=== PATIENT | female | born 1990 | race Caucasian/White ===

== ENCOUNTER 2019-03-10 12:19 | Outpatient (CLI) | payer OTHER ==
[~2019-03-10] VITALS: Ht 154.9 cm; Wt 97.6 kg
[2019-03-10 12:29] VITALS: BP 119/62; PULSE 84; RESP 18; Ht 154.9 cm; Wt 97.6 kg
--- NOTE | 2019-03-10 14:25 | TRIAGE ---
OB Triage Datetime Report Generated by CPN: 03/10/2019 14:25 Datetime: 03/10/2019 13:27 Comments: removed per order due to gestational age Datetime: 03/10/2019 13:10 Stage of : OB Triage Datetime: 03/10/2019 12:38 Vaginal Exam Dilatation (cms): 1.5 Effacement (%): 50 Station: -3 Exam By: S CLIFTON Vaginal Bleeding: None Cervix, Consistency: Soft Cervix, Position: Posterior Presentation 'A': Cephalic Datetime: 03/10/2019 12:35 Stage of : OB Triage Assessment Type: Triage Maternal Assessment Level of Consciousness: Fully Conscious DTR's/Clonus: DTRs 2+; No Clonus Headache: Denies Blurred Vision: No Respiratory Effort: Unlabored; Regular Rhythm; Equal Expansion Breath Sounds, Left: Clear and Equal Breath Sounds, Right: Clear and Equal Nausea/Vomiting: Denies RUQ Epigastric Pain: Denies Facial Edema: None Temperature Route: Axillary Fall Risk Assessment History of Falling: (0) No Secondary Diagnosis: (0) No Ambulatory Aid: (0) Bedrest/Nurse Assist IV Therapy: (0) No Gait: (0) Normal/Bedrest/Immobile Mental Status: (0) Oriented to Own Ability Fall Score: 0 Fall Risk Score Definition: No Risk: No action required Labor Evaluation Frequency: 0 Monitor Mode: External Pattern: Normal: <= 5 Contractions in 10 Minutes Resting Tone Tuttle: Relaxed Heart Rate FHR Baseline Rate: 140 Monitor Mode: External US Variability: Minimal - Undetectable to <=5 bpm Accelerations: None Decelerations: None Category: Category II Pain Assessment Pain Scale: 0 Pain Presence: None/Denies Pain Type: N/A Pain Goal: 3 Datetime: 03/10/2019 12:33 Time of Arrival: 03/10/2019 12:15 EGA: 37.0 Arrived By: Ambulatory Chief Complaint: DFM SINCE LAST NIGHT, BROWN DISCHARGE THIS AM DESCRIBES APPROX A CUP FULL, Movement: Decreased Contractions: Denies/Absent Rupture of Membranes: Denies Vaginal Bleeding: Small Vaginal Discharge: Present Recent Sexual Intercouse: Yes Patient Complaints: Cramping Time Provider Notified: 03/10/2019 14:20 Provider Notified: DR Gonsales Initial Plan: MONITOR, VE,
--- NOTE | 2019-03-10 15:04 | PN ---
Triage Information Date/Time Reason for visit: Decreased movement and leaking fluid Weeks of Gestation Patient is a 29-year-old 5 para 3 at 37 weeks of gestation with estimated date of delivery March 31, 2019 Patient presents with chief complaint of decreased movement and leaking fluid She denies any contractions or vaginal bleeding /Para 5 para 3 Diabetes: none Hypertention: none Objective Vital Signs Date Temp Pulse Resp B/P (MAP) Pulse Ox O2 O2 Flow FiO2 Time Delivery Rate 03/10/19 97.7 84 18 119/62 Room Air 12:29 (81) Heart Rate: 140's Heart Rate Comments heart rate tracing category 1 Contractions: None Results/Medications Results 24 hrs Laboratory Tests Test 03/10/19 13:30 Membranes Rupture NEGATIVE Imaging Results PROCEDURE: US OB biophysical profile. CLINICAL INDICATION: decreased movements, TECHNIQUE: Multiple sonographic images of the pelvis were obtained. The images were reviewed on a PACS workstation. COMPARISON: 03/06/2019 FINDINGS: There is a single live intrauterine gestation. Cardiac activity is present with 154 beats per minute. There is a vertex presentation. The placenta is posterior fundal. There is no evidence of placental abruption. GAVIN = 13.7 cm. Biophysical profile: movement 2/2 tone 2/2. breathing 2/2 GAVIN 2/2 Total 05/31 RPTAT: AA . IMPRESSION: Normal biophysical profile. . .Inderjit Victor MD, MD Date Time Electronically viewed and signed by .Inderjit Victor MD, MD on 03/10/2019 13:43 .S/ CC: FLO PARRA MD [id number] PROCEDURE: US OB. CLINICAL INDICATION: Size and dates TECHNIQUE: Multiple sonographic images of the pelvis and gravid uterus were obtained. The images were reviewed on a PACS workstation. COMPARISON: No prior studies are available for comparison. FINDINGS: Gestation: Single live intrauterine gestation. Cardiac activity: 139 beats per minute. Presentation: Vertex. Placenta: Location: Posterior fundal Appearance: No previa or abruption. Measurements: BPD = 9.0 cm, 36 weeks and 2 days HC = 31.3 cm, 35 weeks and 0 days AC = 34.1 cm, 38 weeks and 0 days FL = 7.3 cm, 37 weeks and 2 days Gestational Age: AUA estimated gestational age: 36 weeks 5 days LMP estimated gestational age: 37 weeks 0 days AUA estimated date of delivery: 04/02/19 The EFW = 3170 g, 64%ile based on LMP age. RPTAT: AA IMPRESSION: Single live intrauterine gestation of 36 weeks 5 days by ultrasound criteria. .Inderjit Victor MD, MD Date Time Electronically viewed and signed by .Inderjit Victor MD, MD on 03/10/2019 13:43 .S/ CC: FLO PARRA MD [id number] Disposition: Discharge Assessment/Plan Patient reports that she is feeling movement here in triage She was counseled to increase p.o. hydration kick count instructions were given Labor precautions were given Patient instructed to follow-up with her own CODE MACHINE OPERATOR in 1 to 2 days FLO PARRA MD March 10, 2019 15:04
== END 2019-03-10 14:22 | disposition home or self-care (01) ==
LOC: OBT 12:19 → L-D 12:19 → OBT 14:22
PROVIDERS: ATTEND Obstetrics & Gynecology
DX: O36.8130 Decreased fetal movements, third trimester, not applicable or unspecified (principal); Z3A.37 37 weeks gestation of pregnancy
CPT/HCPCS: 76815; 76818; 84112; Z7500; G0463

== ENCOUNTER 2019-03-27 11:28 | Inpatient (IN) | payer OTHER ==
[~2019-03-27] VITALS: Ht 154.9 cm; Wt 97.7 kg
[2019-03-27 12:08] VITALS: Ht 154.9 cm; Wt 97.7 kg
[2019-03-27 12:09] VITALS: BP 120/63; PULSE 75; RESP 18
[2019-03-27] MEDS ORDERED: PNV11TAB PO (12:10)
[2019-03-27] MEDS ORDERED: LACTATED RINGER'S 1,000 ML IV SCH (12:13)
[2019-03-27] MEDS ORDERED: OXYTOCIN 30 UNITS/LR 500 ML IV SCH ×6 (12:30→21:00)
[2019-03-27] MEDS ORDERED: OXYTOCIN 30 UNITS/LR 500 ML IV PRN ×3 (12:30→21:00)
[2019-03-27] MEDS ORDERED: BUTORPHANOL 2 MG INJ IV PRN ×2 (12:30)
[2019-03-27] MEDS ORDERED: MISOPROSTOL 200 MCG TAB PR PRN ×3 (12:30→21:00)
[2019-03-27] MEDS ORDERED: LIDOCAINE 1% (MPF) 30 ML INJ INJ PRN ×2 (12:30)
[2019-03-27] MEDS ORDERED: CARBOPROST 250 MCG INJ IM PRN ×3 (12:30→21:00)
[2019-03-27] MEDS ORDERED: METHYLERGONOVINE 0.2 MG INJ IM PRN ×3 (12:30→21:00)
[2019-03-27] MEDS: LACTATED RINGER'S 1,000 ML IV SCH ×2 (12:48→15:24)
--- NOTE | 2019-03-27 13:58 | PREOPHP ---
DATE OF ADMISSION: 03/27/2019 HISTORY OF PRESENT ILLNESS: Ms. Carmela Jones is a 29-year-old 4, para 3, EDC 03/31/2019 i ntrauterine at 39 weeks gestational age, presented to triage complaining of contractions. She denies any vaginal bleeding or discharge. Her care took place with Dr. Jarrell. PAST MEDICAL HISTORY: None. MEDICATIONS: vitamins. PAST SURGICAL HISTORY: None. OBSTETRIC HISTORY: x3 vaginal deliveries. GYNECOLOGIC HISTORY: 12, regular 3 to 4 days. Denies any sexually transmitted infections. Sexually active with 1 partner. SOCIAL HISTORY: Denies any smoking, drugs or alcohol. FAMILY HISTORY: None. REVIEW OF SYSTEMS: All within normal except history of present illness. PHYSICAL EXAMINATION: HEENT: Within normal. LUNGS: CTA bilateral. CARDIOVASCULAR: S1, S2. Regular rate, rhythm. ABDOMEN: Gravid, nontender. Negative CVA bilateral. EXTREMITIES: No calf tenderness. PELVIC: Vaginal exam: 4 cm, 50%, -2 station, intact. heart tracing category 1. [place]: Regul ar contractions. ASSESSMENT: Intrauterine at 39 weeks gestational age in labor. PLAN: Anticipated vaginal delivery. Followup GBS status. If positive, treat with antibiotics. Dictated By: MOISES ROSARIO/NICK Conf#: [id number] DID#: [id number]
--- NOTE | 2019-03-27 14:17 | PREAC ---
Date/Time of Note Date/Time of Note DATE: 03/27/19 TIME: 14:16 Anesthesia Eval and Record Evaluation Time Pre-Procedure Interview DATE: 03/27/19 TIME: 14:16 Age 29 Sex female NPO: 8 hrs Preoperative diagnosis Planned procedure labor epidural Past Medical History Past Medical History: Includes GI: Morbid obesity Surgery & Anesthesia Issues No known issue Meds Anticoagulation: No Beta Chacho within 24 hr: No Reason Beta Chacho not given: Pt. not on B-Chacho Reported Medications [id number] ( 19) 1 Each Tablet, 1 TAB PO DAILY, TAB 03/27/19 Current Medications Lactated Ringer's 1,000 ml @ 125 mls/hr Q8H IV Last administered on 03/27/19at 12:48; Admin Dose 125 MLS/HR; Start 03/27/19 at 12:10 Lidocaine (Xylocaine 1% (Mpf)) 30 ml ONCE PRN INJ .EPISIOTOMY; Start 03/27/19 at 12:30 Oxytocin/Lactated Ringer's 500 ml @ 500 mls/hr ONCE POST IV ; Start 03/27/19 at 12:30 Oxytocin/Lactated Ringer's 500 ml @ 125 mls/hr POST IV ; Start 03/27/19 at 12:30 Oxytocin/Lactated Ringer's 500 ml @ 0 mls/hr ONCE PRN IV .VAGINAL BLEEDING; Start 03/27/19 at 12:30 Methylergonovine Maleate (Methergine) 0.2 mg ONCE PRN IM .VAGINAL BLEEDING; Start 03/27/19 at 12:30 Carboprost Tromethamine (Hemabate) 250 mcg ONCE PRN IM .VAGINAL BLEEDING; Start 03/27/19 at 12:30 Misoprostol (Cytotec) 1,[address] .VAGINAL BLEEDING; Start 03/27/19 at 12:30 Lactated Ringer's 1,000 ml @ 125 mls/hr Q8H IV ; Start 03/27/19 at 12:13 Butorphanol Tartrate (Stadol) 1 mg Q2H PRN IV .PAIN SCALE 1-5; Start 03/27/19 at 12:30 Butorphanol Tartrate (Stadol) 2 mg Q2H PRN IV .PAIN SCALE 6-10; Start 03/27/19 at 12:30 Lidocaine (Xylocaine 1% (Mpf)) 30 ml ONCE PRN INJ .EPISIOTOMY; Start 03/27/19 at 12:30 Oxytocin/Lactated Ringer's 500 ml @ 500 mls/hr ONCE POST IV ; Start 03/27/19 at 12:30 Oxytocin/Lactated Ringer's 500 ml @ 125 mls/hr POST IV ; Start 03/27/19 at 12:30 Oxytocin/Lactated Ringer's 500 ml @ 0 mls/hr ONCE PRN IV .VAGINAL BLEEDING; Start 03/27/19 at 12:30 Methylergonovine Maleate (Methergine) 0.2 mg ONCE PRN IM .VAGINAL BLEEDING; Start 03/27/19 at 12:30 Carboprost Tromethamine (Hemabate) 250 mcg ONCE PRN IM .VAGINAL BLEEDING; Start 03/27/19 at 12:30 Misoprostol (Cytotec) 1,[address] .VAGINAL BLEEDING; Start 03/27/19 at 12:30 Meds reviewed: Yes Allergies Coded Allergies: No Known Allergy (Unverified , 03/10/19) Allergies Reviewed: Yes Labs/Studies Labs Reviewed: Reviewed by anesthesiologist Result Diagram: 03/27/19 1256 Laboratory Tests 03/27/19 12:56 Blood Bank Test 03/27/19 12:56 Antibody Screen NEGATIVE Blood Type B POSITIVE Rh Immune Globulin Candidate NO test: Positive Pre-procedure Exam Last vitals Vital Signs Date Temp Pulse Resp B/P (MAP) Pulse Ox O2 O2 Flow FiO2 Time Delivery Rate 03/27/19 98.7 75 18 120/63 12:09 (82) Airway: Adequate mouth opening, Adequate thyromental dist Mallampati: Mallampati II Teeth: Normal Lung: Normal Heart: Normal ASA Physical Status ASA physical status: 2 Emergency: None Planned Anesthetic Neuraxial: Epidural Pre-operative Attestations Prior to commencing anesthesia and surgery, the patient was re-evaluated, there was verification of: *The patient's identity *The results of appropriate recent lab work and preoperative vital signs *The above evaluation not changing prior to induction *Anesthetic plan, risk benefits, alternative and complications discussed with patient/family; questions answered; patient/family understands, accepts and wishes to proceed. MAURISIO CHAWLA Mar 27, 2019 14:17
[2019-03-27] MEDS ORDERED: KETOROLAC 30 MG INJ IV PRN (14:30)
[2019-03-27] MEDS ORDERED: ONDANSETRON 4 MG INJ IV PRN ×2 (14:30→21:00)
[2019-03-27] MEDS ORDERED: NALOXONE (0.4 MG/ML) INJ IV PRN (14:30)
[2019-03-27] MEDS ORDERED: DIPHENHYDRAMINE 50 MG INJ IV PRN (14:30)
[2019-03-27] MEDS ORDERED: HYDROmorphONE 0.5 MG/0.5 ML SYG IV PRN ×2 (14:30)
--- NOTE | 2019-03-27 14:47 | PAC ---
Date/Time of Note Date/Time of Note DATE: 03/27/19 TIME: 14:47 Post-Anesthesia Notes Post-Anesthesia Note Last documented vital signs Vital Signs Date Temp Pulse Resp B/P (MAP) Pulse Ox O2 O2 Flow FiO2 Time Delivery Rate 03/27/19 98.7 75 18 120/63 12:09 (82) Activity: WNL Respiratory function: WNL Cardiovascular function: WNL Mental status: Baseline Pain reasonably controlled: Yes Hydration appropriate: Yes Nausea/Vomiting absent: Yes MAURISIO CHAWLA Mar 27, 2019 14:47
[2019-03-27] MEDS: FENTAnyl 2MCG/ML-ROPIV 0.2% 100 ML BAG EPI SCH ×2 (15:51→20:04)
[2019-03-27] MEDS ORDERED: SENNA/DOCUSATE NA (8.6MG/50MG) TAB PO PRN (21:00)
[2019-03-27] MEDS ORDERED: LANOLIN HPA 1 PKT TOP PRN (21:00)
[2019-03-27] MEDS ORDERED: NACL 0.9% 3 ML SYG IV SCH (21:00)
[2019-03-27] MEDS: SENNA/DOCUSATE NA (8.6MG/50MG) TAB PO SCH (21:00)
[2019-03-27] MEDS ORDERED: ACETAMINOPHEN 325 MG TAB PO PRN (21:00)
[2019-03-27] MEDS ORDERED: WITCH HAZEL/GLYCERIN PAD PR PRN (21:00)
--- NOTE | 2019-03-27 21:00 | LDN ---
Date/Time of Note Date/Time of Note DATE: 03/27/19 TIME: 20:57 Delivery Summary Weeks of Gestation 40 Placenta Delivered: Spontaneously Meconium: none Anesthesia type: Epidural Estimated blood loss: 150 Sponge & Needle done & correct: Yes All needle counts correct: Yes Any foreign bodies felt in the: No Infant Delivery Information Sex Infant Sex: female Apgars 1 Minute: 9 5 Minute: 9 Suctioning Nose & mouth suctioned at liz: No Delee suction performed: No Umbilical Cord Umbilical cord with: 3 Vessels Cord presentations: no nuchal cord Cord Blood was obtained: Yes MOISES SERRANO MD Mar 27, 2019 21:00
[2019-03-27 22:30] VITALS: BP 106/58; PULSE 70; RESP 18
[2019-03-28 03:13] VITALS: BP 109/58; PULSE 73; RESP 18
[2019-03-28] MEDS: IBUPROFEN 600 MG TAB PO SCH ×4 (05:05→23:30)
[2019-03-28 08:00] VITALS: BP 96/53; PULSE 74; RESP 18
[2019-03-28] MEDS: SENNA/DOCUSATE NA (8.6MG/50MG) TAB PO SCH ×2 (09:00→21:00)
[2019-03-28] MEDS ORDERED: OXYCODONE/ACETAMINOPHEN (5/325) TAB PO PRN (10:00)
[2019-03-28 15:37] VITALS: BP 104/81; PULSE 66; RESP 18
[2019-03-28] MEDS: OXYCODONE/ACETAMINOPHEN (5/325) TAB PO PRN ×2 (15:37→21:44)
[2019-03-28] MEDS ORDERED: IBUPROFEN 600 MG TAB PO SCH (18:00)
--- NOTE | 2019-03-28 18:31 | PD.PPDC ---
MACHINE SHOP SPECIALIST Discharge Instruction Condition [id number] Patient Condition: Azquq5d Good Diet [id number] Diet: Pfapz0x Resume Regular Diet Activity/Restrictions [id number] Activity: Weezw0a Normal Activity May Shower [id number] Restrictions: Msggk9e No Exercising No Lifting No Driving No Sexual Activity Nothing in the Vagina No [place] No Tampons, douche Wound/Drain Care Instructions [id number] Wound/Drain Care Instructions: Wlbjg5h Wash with soap and water Keep clean and dry Follow-up Follow-up with Physician: 3, Week/Weeks Return to clinic for [id number] PREPARATION OPERATOR Instructions: Aqzrf1b Fever greater than 101 Chills Worsening abdominal pain Excessive Vaginal Bleeding More than 2 pads per hour Unable to tolerate diet [id number] OB Instructions: Dpqub0q Breast Tenderness Depression Blurried Vision Headache MOISES SERRANO MD Mar 28, 2019 18:31
--- NOTE | 2019-03-28 18:32 | DS ---
Date/Time of Note Date/Time of Note DATE: 03/28/19 TIME: 18:32 Obstetrical Discharge Record Final Diagnosis Final Diagnosis: Term delivered Vaginal Delivery Obstetrical Delivery: Spontaneous Condition on Discharge Physical Assessment Last Vitals: stable afebrile Voiding: Yes Bowel Movement: Yes Breast: Soft, non-tender, Filling Fundus: Firm Calf Tenderness: No Patient Condition: Fair MOISES SERRANO MD Mar 28, 2019 18:32
[2019-03-28 19:45] VITALS: BP 116/61; PULSE 61; RESP 19
--- NOTE | 2019-03-28 23:58 | DELSUM ---
Delivery Summary A-C Datetime Report Generated by CPN: 03/28/2019 23:57 DELIVERY PERSONNEL Director Supply: Tersigni, Xuan MATERNAL INFORMATION Delivery Anesthesia: Epidural Medications in Delivery: LR with 30 units of pitocin Delivery QBL (ml): 250 Placenta Cultured: No Maternal Complications: None RN Comments: nurse-assisted delivery LABOR SUMMARY EDC: 03/31/2019 00:00 No. Babies in Womb: 1 Attempted: No Labor Anesthesia: Epidural LABOR INFORMATION Reason for Induction: Not Applicable Onset of Labor: 03/27/2019 06:00 Complete Dilatation: 03/27/2019 20:22 Oxytocin: Augmentation Group B Beta Strep: Negative Antibiotics # of Doses: 0 Steroids Given: None Reason Steroids Not Administered: Not Applicable MEMBRANES Membranes Rupture Method: Spontaneous Rupture of Membranes: 03/27/2019 20:35 Length of Rupture (hr): 0.07 Amniotic Fluid Color: Clear Amniotic Fluid Amount: Moderate Amniotic Fluid Odor: None STAGES OF LABOR Stage 1 hr: 14 Stage 1 min: 22 Stage 2 hr: 0 Stage 2 min: 17 Stage 3 hr: 0 Stage 3 min: 7 Total Time in Labor hr: 14 Total Time in Labor min: 46 VAGINAL DELIVERY Episiotomy: None Laceration Extension: N/A Laceration Type: None Laceration Repair: Not Applicable Initial Vag Sponge Count: 10 Final Vag Sponge Count: 10 Initial Vag Sharps Count: 1 Final Vag Sharps Count: 1 Sponge Count Correct: Yes; Vaginal Sweep Performed Sharps Count Correct: Yes BABY A INFORMATION Infant Delivery Date/Time: 03/27/2019 20:39 Method of Delivery: Vaginal Born in Route : No : N/A Forceps: N/A Vacuum Extraction: N/A Shoulder Dystocia : N/A SHOULDER DYSTOCIA BABY A Delivery Date/Time: 03/27/2019 20:39 PRESENTATION/POSITION BABY A Presentation: Cephalic Cephalic Presentation: Vertex Vertex Position: Left Occipital Anterior Breech Presentation: N/A PLACENTA INFORMATION BABY A Placenta Delivery Time : 03/27/2019 20:46 Placenta Method of Delivery: Spontaneous Placenta Status: Delivered SCORES BABY A Heart Rate 1 min: >100 bpm Resp Effort 1 min: Good Cry Reflex Irritability 1 min: Cough/Sneeze/Pulls Away Muscle Tone 1 min: Active Motion Color 1 min: Body [place], Extremit Blue Resuscitation Effort 1 min: Tactile Stimulation SCORE 1 MIN: 9 Heart Rate 5 min: >100 bpm Resp Effort 5 min: Good Cry Reflex Irritability 5 min: Cough/Sneeze/Pulls Away Muscle Tone 5 min: Active Motion Color 5 min: Body [place], Extremit Blue Resuscitation Effort 5 min: Tactile Stimulation SCORE 5 MIN: 9 INFANT INFORMATION BABY A Gestational Age at Delivery: 39.3 Gestational Status: Full Term- 39- 40.6 Weeks Outcome : Liveborn Infant Condition : Stable Infant Sex: Female IDENTIFICATION/MEDS BABY A ID Band Number: [id number] ID Band Location: Right Leg; Left Arm Sensor Applied: Yes Sensor Number: [id number] Sensor Location : Cord Clamp Vitamin K Given : Not Given Erythromycin Given: Not Given WEIGHT/LENGTH BABY A Birthweight (gm): 3360 Weight (lb): 7 Weight (oz): 7 Infant Length (in): 20.00 Length (cm): 50.80 CORD INFORMATION BABY A No. Cord Vessels: 3 Nuchal Cord : N/A Cord Blood Taken: Yes Infant Suction: Mouth; Nose ASSESSMENT BABY A Infant Complications: None Physical Findings at Delivery: Within Normal Limits Respirations: Appears Normal Folded Cloth Taper/ALS Called : No Infant Care By: Crystal DASILVA Transferred To: Remains with Mother
[2019-03-29 03:45] VITALS: BP 109/58; PULSE 67; RESP 18
[2019-03-29] MEDS: IBUPROFEN 600 MG TAB PO SCH (05:32)
[2019-03-29 08:00] VITALS: BP 118/75; PULSE 76; RESP 14
[2019-03-29] MEDS: SENNA/DOCUSATE NA (8.6MG/50MG) TAB PO SCH (08:56)
[2019-03-29] MEDS ORDERED: DIPHTH/TET/ACEL PERTUSS (ADULT) 0.5 ML VIAL IM* ONE (10:00)
[2019-03-29] MEDS ORDERED: MEASLES,MUMPS,RUBELLA VACCINE INJ SC* ONE (10:00)
== END 2019-03-29 11:45 | disposition home or self-care (01) | DRG 807 ==
LOC: L-D 11:28 → OBT 11:28 → L-D 12:00 → MS1 23:48
PROVIDERS: ADMIT Obstetrics & Gynecology; ATTEND Obstetrics & Gynecology
PROC: 10E0XZZ Delivery of Products of Conception, External Approach (ICD-10-PCS; principal; 2019-03-27)
DX: O99.214 Obesity complicating childbirth (principal); Z37.0 Single live birth; E66.01 Morbid (severe) obesity due to excess calories; Z3A.40 40 weeks gestation of pregnancy; Z23 Encounter for immunization
CPT/HCPCS: 62322; 80307; 85025; 85610; 85730; 86592; 86850; 86900; 86901; 90715; G0463; J1885; J2590; J3010; J7120